=== PATIENT | female | born 1960 | race Caucasian/White ===

== ENCOUNTER 2021-04-29 05:50 | Inpatient (IN) ==
[2021-04-29] MEDS ORDERED: diphenhydrAMINE CAP 50 MG CAPSULE PO ONE (05:55)
[2021-04-29] MEDS ORDERED: POTASSIUM CHLORIDE RIDER 10 MEQ/100 ML PREMIX IV PRN (05:55)
[2021-04-29] MEDS ORDERED: DIAZEPAM 5 MG TABLET PO ONE (05:55)
[2021-04-29] MEDS ORDERED: MAGNESIUM SULF RIDER 2 GM/50 ML PREMIX IV PRN (05:55)
[2021-04-29] MEDS ORDERED: DEXTROSE 5% NACL 0.45% 1,000 ML IV SCH (06:00)
[2021-04-29] MEDS ORDERED: DIAZEPAM 5 MG TABLET ONE (06:42)
[2021-04-29] MEDS ORDERED: diphenhydrAMINE CAP 50 MG CAPSULE ONE (06:43)
[2021-04-29] MEDS ORDERED: ASPIRIN 325 MG TABLET ONE (06:45)
[2021-04-29] MEDS ORDERED: ASPIRIN 325 MG TABLET PO ONE (06:47)
[2021-04-29] MEDS ORDERED: HEPARIN/NACL 0.9% 2 UNITS/ML 2,000 UNIT/1,000 ML BAG IV ONE (06:50)
[2021-04-29] MEDS ORDERED: LIDOCAINE 1% 20 ML VIAL ONE (06:50)
[2021-04-29 06:58] LABS: Basophils # 0.1 10*3/uL (0.0-0.2); Basophils % 0.7 % (0.0-0.8); Eosinophils # 0.1 10*3/uL (0.0-0.87); Eosinophils % 1.3 % (0.00-10.9); Hematocrit 45.1 VOL% (35.7-47.0); Hemoglobin 14.5 GM/DL (12.0-16.0); Immature Granulocytes % 0.5 %; Immature Granulocytes Absolute 0.04 #; Lymphocytes # 3.8 10*3/uL (1.4-4.0); Lymphocytes % 43.2 % (21.3-54.2); Mean Corpuscular HGB Conc 32.2 GM/DL (32-36); Mean Corpuscular Volume 88.3 FL (87-102); Mean Platelet Volume 9.2 FL (9.6-12.0); Monocytes % 8.5 % (1.7-12.7); Neutrophils % 45.8 % (38.7-73.9); Platelet Count 316 T/CUMM (130-400); Red Blood Count 5.11 MC/CUMM (3.8-5.5); Red Cell Distribution Width 12.6 % (9.3-17.3); White Blood Count 8.7 T/CUMM (4-12)
[2021-04-29] MEDS ORDERED: VERAPAMIL 5 MG/2 ML VIAL ONE (07:05)
[2021-04-29] MEDS ORDERED: MIDAZOLAM 2 MG/2 ML VIAL ONE (07:05)
[2021-04-29] MEDS ORDERED: fentaNYL 100 MCG/2 ML VIAL ONE (07:05)
[2021-04-29] MEDS ORDERED: NITROGLYCERIN DRIP 50 MG/250 ML BOTTLE IV ONE (07:05)
[2021-04-29 07:07] LABS: INR 0.9; PT Patient Result 10.4 SECS (10.5-12.0)
[2021-04-29] MEDS ORDERED: ENOXAPARIN 60 MG/0.6 ML SYRINGE ONE (07:23)
[2021-04-29 07:32] LABS: Bilirubin,Total 0.6 MG/DL (0.20-1.00); Calcium 9.2 MG/DL (8.5-10.1); Osmolality,Calculated 284.4 MOS/KG (273-304); Potassium 3.8 MMOL/L (3.5-5.1); Total Protein 7.8 G/DL (6.4-8.2)
[2021-04-29] MEDS ORDERED: GLUCAGON 1 MG VIAL IM PRN (12:42)
[2021-04-29] MEDS ORDERED: DEXTROSE 50% 25 GM/50 ML VIAL IV PRN (12:42)
[2021-04-29] MEDS ORDERED: NITROGLYCERIN SL 0.4 MG TABLET SL PRN (14:30)
[2021-04-29] MEDS ORDERED: MAGNESIUM OXIDE 400 MG TABLET PO SCH (15:00)
[2021-04-29] MEDS ORDERED: FLUoxetine 20 MG CAPSULE PO SCH (15:00)
[2021-04-29] MEDS: ESTRADIOL 1 MG TABLET PO SCH (15:19)
[2021-04-29] MEDS: LEVOTHYROXINE 88 MCG TABLET PO SCH (15:19)
[2021-04-29] MEDS: ENOXAPARIN 80 MG/0.8 ML SYRINGE SUBCUT SCH (15:40)
[2021-04-29] MEDS: INSULIN REGULAR 100 UNIT/ML SUBCUT SCH ×2 (16:55→22:14)
[2021-04-29] MEDS ORDERED: metFORMIN 500 MG TABLET PO SCH (17:00)
[2021-04-29] MEDS ORDERED: NON-FORMULARY MEDICATION (Empagliflozin [Jardiance] 25 MG) PO SCH (17:00)
[2021-04-29] MEDS ORDERED: INSULIN ASPART PROTAMINE/ASPART 70/30 100 UNIT/ML SUBCUT SCH ×2 (18:00→21:00)
[2021-04-29] MEDS ORDERED: VALSARTAN 80 MG TABLET PO SCH (21:00)
[2021-04-29] MEDS ORDERED: METOPROLOL SUCCINATE XL 25 MG TABLET PO SCH (21:00)
[2021-04-29] MEDS ORDERED: METOPROLOL SUCCINATE XL 50 MG TABLET PO SCH (21:00)
[2021-04-29] MEDS ORDERED: ASCORBIC ACID 500 MG TABLET PO SCH (21:00)
[2021-04-29] MEDS: FLUoxetine 20 MG CAPSULE PO SCH (21:28)
[2021-04-29] MEDS: ASPIRIN EC 81 MG TABLET PO SCH (21:29)
[2021-04-29] MEDS: ASCORBIC ACID 500 MG TABLET PO SCH (21:30)
[2021-04-29] MEDS: MAGNESIUM OXIDE 400 MG TABLET PO SCH (22:15)
[2021-04-29] MEDS: CHOLECALCIFEROL 5,000 UNIT TABLET PO SCH (22:16)
[2021-04-29] MEDS: CLORAZEPATE 3.75 MG TABLET PO SCH (22:16)
[2021-04-29] MEDS: PANTOPRAZOLE 40 MG TABLET PO SCH (22:16)
[2021-04-30] MEDS: ENOXAPARIN 80 MG/0.8 ML SYRINGE SUBCUT SCH (03:19)
[2021-04-30 04:16] LABS: ABG Base Excess -0.4 MMOL/L (-2.5-2.5); ABG HCO3 24.3 MMOL/L (20-26); ABG Oxygen Saturation 95.9 % (95-100); ABG PCO2 40.2 MM HG (35-48); ABG PO2 84.1 MM HG (80-95); ABG TCO2 25.6 MMOL/L (23-27)
[2021-04-30 06:11] LABS: Basophils # 0.1 10*3/uL (0.0-0.2); Basophils % 0.7 % (0.0-0.8); Eosinophils # 0.1 10*3/uL (0.0-0.87); Eosinophils % 1.6 % (0.00-10.9); Hemoglobin 13.6 GM/DL (12.0-16.0); Immature Granulocytes % 0.3 %; Immature Granulocytes Absolute 0.03 #; Lymphocytes # 4.1 10*3/uL (1.4-4.0); Lymphocytes % 47.3 % (21.3-54.2); Mean Corpuscular HGB Conc 33.2 GM/DL (32-36); Mean Corpuscular Volume 87.2 FL (87-102); Mean Platelet Volume 9.3 FL (9.6-12.0); Monocytes % 7.2 % (1.7-12.7); Neutrophils % 42.9 % (38.7-73.9); Platelet Count 297 T/CUMM (130-400); Red Cell Distribution Width 12.4 % (9.3-17.3); White Blood Count 8.7 T/CUMM (4-12)
[2021-04-30] MEDS: LEVOTHYROXINE 88 MCG TABLET PO SCH (06:18)
[2021-04-30 07:14] LABS: Albumin 3.4 G/DL (3.4-5.0); Bilirubin,Total 0.4 MG/DL (0.20-1.00); Calcium 8.3 MG/DL (8.5-10.1); Osmolality,Calculated 275.1 MOS/KG (273-304); Total Protein 6.6 G/DL (6.4-8.2)
[2021-04-30] MEDS ORDERED: INSULIN ASPART PROTAMINE/ASPART 70/30 100 UNIT/ML SUBCUT SCH ×3 (08:00→16:30)
[2021-04-30] MEDS ORDERED: VALSARTAN 80 MG TABLET PO SCH ×2 (09:00)
[2021-04-30] MEDS: MAGNESIUM OXIDE 400 MG TABLET PO SCH ×2 (10:02→21:30)
[2021-04-30] MEDS: METOPROLOL SUCCINATE XL 25 MG TABLET PO SCH ×2 (10:02→21:30)
[2021-04-30] MEDS: INSULIN REGULAR 100 UNIT/ML SUBCUT SCH ×3 (10:03→12:31)
[2021-04-30] MEDS: ASCORBIC ACID 500 MG TABLET PO SCH ×2 (10:05→21:30)
[2021-04-30] MEDS: CHLORHEXIDINE 0.12% ORAL RINSE 60 ML BOTTLE SWISH/SPIT SCH (10:05)
[2021-04-30] MEDS: CHLORHEXIDINE 4% SOLN 118 ML BOTTLE TOP SCH (14:50)
[2021-04-30] MEDS ORDERED: FLUoxetine 20 MG CAPSULE PO PRN (16:39)
[2021-04-30] MEDS: INSULIN LISPRO 100 UNIT/ML SUBCUT SCH ×2 (17:56→22:56)
[2021-04-30] MEDS: ASPIRIN EC 81 MG TABLET PO SCH (21:30)
[2021-04-30] MEDS: FLUoxetine 20 MG CAPSULE PO SCH (21:30)
[2021-04-30] MEDS: PANTOPRAZOLE 40 MG TABLET PO SCH (21:30)
[2021-04-30] MEDS: CHOLECALCIFEROL 5,000 UNIT TABLET PO SCH (21:37)
[2021-04-30] MEDS: INSULIN GLARGINE 100 UNIT/ML SUBCUT SCH (22:56)
[2021-04-30] MEDS: CLORAZEPATE 3.75 MG TABLET PO SCH (22:57)
[2021-05-01] MEDS: NIFEdipine 10 MG CAPSULE PO PRN ×2 (04:17→10:53)
[2021-05-01] MEDS ORDERED: VANCOMYCIN INJ 1,000 MG in SODIUM CHLORIDE 0.9% 250 ML IV ONE (05:00)
[2021-05-01] MEDS ORDERED: PANTOPRAZOLE 40 MG TABLET PO ONE (05:30)
[2021-05-01] MEDS ORDERED: LORazepam 1 MG TABLET PO ONE (05:30)
[2021-05-01 06:04] LABS: Risk Ratio 6.08; VLDL Cholesterol 89.2 MG/DL
[2021-05-01] MEDS: LEVOTHYROXINE 88 MCG TABLET PO SCH (06:14)
[2021-05-01] MEDS: CHLORHEXIDINE 4% SOLN 118 ML BOTTLE TOP SCH ×2 (06:32→09:33)
[2021-05-01] MEDS: CHLORHEXIDINE 0.12% ORAL RINSE 60 ML BOTTLE SWISH/SPIT SCH ×3 (06:32→22:15)
[2021-05-01] MEDS ORDERED: CLORAZEPATE 3.75 MG TABLET PO PRN (08:10)
[2021-05-01] MEDS ORDERED: DIAZEPAM 5 MG TABLET PO ONE (08:15)
[2021-05-01] MEDS ORDERED: CLOPIDOGREL 75 MG TABLET PO SCH (09:00)
[2021-05-01] MEDS: VALSARTAN 80 MG TABLET PO SCH ×2 (09:29→21:34)
[2021-05-01] MEDS: ESTRADIOL 1 MG TABLET PO SCH (09:30)
[2021-05-01] MEDS: MAGNESIUM OXIDE 400 MG TABLET PO SCH ×2 (09:30→21:34)
[2021-05-01] MEDS: ACETAMINOPHEN 325 MG TABLET PO PRN ×2 (09:31→22:11)
[2021-05-01] MEDS: ASCORBIC ACID 500 MG TABLET PO SCH ×2 (09:31→21:33)
[2021-05-01] MEDS: SELENIUM 200 MCG TABLET PO SCH (09:31)
[2021-05-01] MEDS: METOPROLOL SUCCINATE XL 25 MG TABLET PO SCH ×2 (09:32→21:35)
[2021-05-01] MEDS: INSULIN LISPRO 100 UNIT/ML SUBCUT SCH ×4 (09:33→22:15)
[2021-05-01] MEDS: SODIUM CHLORIDE 0.9% 1,000 ML IV SCH ×2 (09:33→14:15)
[2021-05-01] MEDS: CLOPIDOGREL 75 MG TABLET PO SCH (14:26)
[2021-05-01] MEDS ORDERED: ESCITALOPRAM 10 MG TABLET PO SCH (21:00)
[2021-05-01] MEDS ORDERED: ROSUVASTATIN 20 MG TABLET PO SCH (21:00)
[2021-05-01] MEDS: CHOLECALCIFEROL 5,000 UNIT TABLET PO SCH (21:34)
[2021-05-01] MEDS: PANTOPRAZOLE 40 MG TABLET PO SCH (21:34)
[2021-05-01] MEDS: ASPIRIN EC 81 MG TABLET PO SCH (21:35)
[2021-05-01] MEDS: INSULIN GLARGINE 100 UNIT/ML SUBCUT SCH (22:13)
[2021-05-02] MEDS: LEVOTHYROXINE 88 MCG TABLET PO SCH (05:59)
[2021-05-02] MEDS: METOPROLOL SUCCINATE XL 25 MG TABLET PO SCH (08:17)
[2021-05-02] MEDS: ASCORBIC ACID 500 MG TABLET PO SCH (08:19)
[2021-05-02] MEDS: MAGNESIUM OXIDE 400 MG TABLET PO SCH (08:19)
[2021-05-02] MEDS: CLOPIDOGREL 75 MG TABLET PO SCH (08:19)
[2021-05-02 08:20] VITALS: BP 131/84
[2021-05-02] MEDS: VALSARTAN 80 MG TABLET PO SCH (08:20)
[2021-05-02] MEDS: CHLORHEXIDINE 0.12% ORAL RINSE 60 ML BOTTLE SWISH/SPIT SCH (08:20)
[2021-05-02] MEDS: SELENIUM 200 MCG TABLET PO SCH (09:33)
[2021-05-02] MEDS: INSULIN LISPRO 100 UNIT/ML SUBCUT SCH (09:36)
[2021-05-06] MEDS ORDERED: CYANOCOBALAMIN 1000 MCG/1 ML VIAL IM SCH (09:00)
== END 2021-05-02 11:09 | disposition home or self-care (01) | DRG 286 ==
LOC: N.CL 05:50 → N.TELES 12:05
PROVIDERS: ADMIT Internal Medicine Interventional Cardiology; ATTEND Internal Medicine Interventional Cardiology
PROC: CLCCHCL (ICD-10-PCS; 2021-04-29 07:15)

== ENCOUNTER 2021-05-29 08:21 | Inpatient (IN) ==
[2021-05-29] MEDS ORDERED: GLUCAGON 1 MG VIAL IM PRN (09:09)
[2021-05-29] MEDS ORDERED: DEXTROSE 50% 25 GM/50 ML VIAL IV PRN (09:09)
[2021-05-29] MEDS: CHLORHEXIDINE 0.12% ORAL RINSE 60 ML BOTTLE SWISH/SPIT SCH ×2 (09:10→20:33)
[2021-05-29] MEDS ORDERED: CLORAZEPATE 3.75 MG TABLET PO PRN (09:16)
[2021-05-29] MEDS: CHLORHEXIDINE 4% SOLN 118 ML BOTTLE TOP SCH ×3 (10:00→20:33)
[2021-05-29 10:36] LABS: Basophils % 0.5 % (0.0-0.8); Eosinophils # 0.1 10*3/uL (0.0-0.87); Eosinophils % 1.5 % (0.00-10.9); Hematocrit 39.1 VOL% (35.7-47.0); Hemoglobin 13.1 GM/DL (12.0-16.0); Immature Granulocytes % 0.2 %; Immature Granulocytes Absolute 0.02 #; Lymphocytes # 3.4 10*3/uL (1.4-4.0); Lymphocytes % 41.6 % (21.3-54.2); Mean Corpuscular HGB Conc 33.5 GM/DL (32-36); Mean Corpuscular Volume 87.5 FL (87-102); Mean Platelet Volume 9.6 FL (9.6-12.0); Monocytes % 7.8 % (1.7-12.7); Neutrophils % 48.4 % (38.7-73.9); Platelet Count 260 T/CUMM (130-400); Red Blood Count 4.47 MC/CUMM (3.8-5.5); Red Cell Distribution Width 12.6 % (9.3-17.3); White Blood Count 8.1 T/CUMM (4-12)
[2021-05-29 11:57] LABS: Calcium 8.7 MG/DL (8.5-10.1)
[2021-05-29 11:59] LABS: Albumin 3.6 G/DL (3.4-5.0); Bilirubin,Total 1.2 MG/DL (0.20-1.00); Osmolality,Calculated 290.1 MOS/KG (273-304); Total Protein 6.6 G/DL (6.4-8.2)
[2021-05-29] MEDS: INSULIN REGULAR 100 UNIT/ML SUBCUT SCH ×3 (12:00→20:32)
[2021-05-29] MEDS ORDERED: MAGNESIUM SULF RIDER 2 GM/50 ML PREMIX IV ONE (12:17)
[2021-05-29 13:32] LABS: ABG HCO3 24.5 MMOL/L (20-26); ABG PCO2 38.6 MM HG (35-48); ABG TCO2 21.3 MMOL/L (23-27)
[2021-05-29] MEDS ORDERED: MAGNESIUM SULF RIDER 4 GM/100 ML PREMIX IV PRN (15:00)
[2021-05-29] MEDS ORDERED: MAGNESIUM SULF RIDER 2 GM/50 ML PREMIX IV PRN (15:00)
[2021-05-29] MEDS ORDERED: PANTOPRAZOLE 40 MG TABLET PO ONE (16:59)
[2021-05-29] MEDS ORDERED: DIAZEPAM 5 MG TABLET PO ONE (16:59)
[2021-05-29] MEDS: SODIUM CHLORIDE 0.9% 1,000 ML IV SCH (20:33)
[2021-05-30] MEDS ORDERED: PAPAVERINE 60 MG/2 ML VIAL ONE (04:43)
[2021-05-30] MEDS ORDERED: VANCOMYCIN 1,000 MG VIAL ONE (04:43)
[2021-05-30] MEDS ORDERED: VANCOMYCIN 500 MG VIAL ONE (04:44)
[2021-05-30] MEDS ORDERED: DIAZEPAM 5 MG TABLET PO ONE (05:00)
[2021-05-30] MEDS ORDERED: PANTOPRAZOLE 40 MG TABLET PO ONE (05:00)
[2021-05-30] MEDS ORDERED: VANCOMYCIN INJ 1,000 MG in SODIUM CHLORIDE 0.9% 250 ML IV ONE (05:00)
[2021-05-30] MEDS ORDERED: SUFentanil 250 MCG/5 ML AMP ONE ×2 (05:57)
[2021-05-30] MEDS ORDERED: MIDAZOLAM 10 MG/2 ML VIAL ONE ×4 (05:57→09:19)
[2021-05-30] MEDS ORDERED: LIDOCAINE 2% 5 ML VIAL ONE ×2 (06:05→10:21)
[2021-05-30] MEDS ORDERED: VECURONIUM 10 MG VIAL IV ONE ×3 (06:05→09:19)
[2021-05-30] MEDS ORDERED: SEVOFLURANE 1 UNIT/15 MINUTE INH ONE (06:05)
[2021-05-30] MEDS ORDERED: ETOMIDATE 40 MG/20 ML VIAL IV ONE (06:05)
[2021-05-30] MEDS ORDERED: SODIUM CHLORIDE 0.9% 1,000 ML IV ONE (06:07)
[2021-05-30] MEDS ORDERED: SODIUM CHLORIDE 0.9% 200 ML IV ONE (06:07)
[2021-05-30] MEDS ORDERED: SODIUM CHLORIDE 0.9% 250 ML IV ONE (06:07)
[2021-05-30] MEDS ORDERED: SODIUM BICARBONATE 50 MEQ/50 ML VIAL IV ONE ×2 (07:16→10:22)
[2021-05-30] MEDS ORDERED: NITROPRUSSIDE 50 MG/2 ML VIAL ONE (07:16)
[2021-05-30] MEDS ORDERED: ALBUMIN 5% 12.5 GM/250 ML VIAL IV ONE (07:17)
[2021-05-30] MEDS ORDERED: PHENYLEPHRINE DRIP 40 MG/250 ML PREMIX IV ONE (07:17)
[2021-05-30] MEDS ORDERED: POTASSIUM CHLORIDE RIDER 20 MEQ/100 ML PREMIX IV ONE (07:17)
[2021-05-30] MEDS ORDERED: CALCIUM CHLORIDE 1,000 MG/10 ML SYRINGE IV ONE (07:17)
[2021-05-30 07:38] LABS: ABG Base Excess 0.7 MMOL/L (-2.5-2.5); ABG HCO3 25.1 MMOL/L (20-26); ABG PCO2 32.1 MM HG (35-48); ABG PH 7.473 (7.35-7.45); ABG TCO2 20.5 MMOL/L (23-27); Glucose Heart Surgery 195 MG/DL (74-106); Hematocrit Heart Surgery 39.1 PERCENT (37-47); Hemoglobin Heart Surgery 12.7 G/DL (12.0-16.0); Ionized Calcium Arterial 1.14 MMOL/L (1.21-1.46); PCO2 Patient Temp Arterial 32.1 MMHG; PH Patient Temp Arterial 7.473; Patient Temperature 37 CELCIUS; Potassium Heart/CVR 3.6 MMOL/L (3.5-5.1); Sodium Heart/CVR 141 MMOL/L (135-145)
[2021-05-30 07:42] LABS: Bacteria,Urine Occasional /HPF (Few); Bilirubin,Urine Negative (Negative); Blood, Urine Negative (Negative); Glucose,Urine (UA) >=500 mg/dL (Negative); Ketones,Urine 80 mg/dL (Negative); Nitrite,Urine Negative (Negative); Protein,Urine Negative; RBC,Urine 4 /HPF (0-4); Squamous Epithelial Cell,Urine Occasional /HPF (0-10); Urine Appearance CLEAR (Clear); Urine Color Straw (Yellow); Urine Specific Gravity 1.024 (1.001-1.035); Urine Urobilinogen < 2.0 EU/DL (0.2-1.0)
[2021-05-30] MEDS ORDERED: HEPARIN/NACL 0.9% 2 UNITS/ML 1,000 UNIT/500 ML BAG IV ONE (08:03)
[2021-05-30] MEDS ORDERED: NITROGLYCERIN DRIP 50 MG/250 ML BOTTLE IV ONE (08:03)
[2021-05-30] MEDS ORDERED: PHENYLEPHRINE DRIP 20 MG/250 ML PREMIX IV ONE (08:03)
[2021-05-30] MEDS ORDERED: AMIODARONE 150 MG/3 ML VIAL ONE (08:36)
[2021-05-30] MEDS ORDERED: SODIUM CHLORIDE 0.9% 100 ML IV ONE ×2 (08:36→09:40)
[2021-05-30 09:01] LABS: PCO2 Patient Temp Venous 31.4 MM HG; PH Patient Temp Venous 7.47; PO2 Patient Temp Venous 39.8 MM HG; Potassium Heart/CVR 4.2 MMOL/L (3.5-5.1); VBG Base Excess -0.3 MEQ/L (0-4); VBG Oxygen Saturation 82.2 %; VBG PCO2 34.6 MMHG (41-51); VBG PH 7.441; VBG PO2 45.6 MMHG (17-40)
[2021-05-30 09:25] LABS: Hematocrit Heart Surgery 27.5 PERCENT (37-47); Hemoglobin Heart Surgery 8.9 G/DL (12.0-16.0); PH Patient Temp Venous 7.463; PO2 Patient Temp Venous 42.7 MM HG; Potassium Heart/CVR 4.4 MMOL/L (3.5-5.1); VBG Base Excess -0.9 MEQ/L (0-4); VBG HCO3 23.5 MEQ/L (24-28); VBG Oxygen Saturation 87.1 %; VBG PCO2 35.9 MMHG (41-51); VBG PH 7.419; VBG PO2 52.4 MMHG (17-40); VBG Total CO2 21.5 MMOL/L
[2021-05-30] MEDS ORDERED: CALCIUM CHLORIDE 1,000 MG/10 ML VIAL IV ONE (09:36)
[2021-05-30] MEDS ORDERED: ESMOLOL 100 MG/10 ML VIAL IV ONE (09:43)
[2021-05-30] MEDS ORDERED: THROMBIN TOPICAL (RECOMBINANT) 5,000 UNIT VIAL TOP ONE (09:50)
[2021-05-30 09:59] LABS: Hematocrit Heart Surgery 27.4 PERCENT (37-47); Hemoglobin Heart Surgery 8.8 G/DL (12.0-16.0); PCO2 Patient Temp Venous 36.2 MM HG; PH Patient Temp Venous 7.428; PO2 Patient Temp Venous 41.5 MM HG; Potassium Heart/CVR 4.6 MMOL/L (3.5-5.1); VBG Base Excess -0.2 MEQ/L (0-4); VBG Oxygen Saturation 75.8 %; VBG PCO2 36.2 MMHG (41-51); VBG PH 7.428; VBG PO2 41.5 MMHG (17-40); VBG Total CO2 22.1 MMOL/L
[2021-05-30] MEDS ORDERED: MAGNESIUM SULFATE 5 GM/10 ML VIAL IV ONE (10:21)
[2021-05-30] MEDS ORDERED: methylPREDNISolone SOD SUC 1,000 MG/8 ML VIAL ONE (10:21)
[2021-05-30] MEDS ORDERED: ALBUMIN 25% 25 GM/100 ML VIAL IV ONE (10:21)
[2021-05-30] MEDS ORDERED: FUROSEMIDE 20 MG/2 ML VIAL ONE (10:22)
[2021-05-30] MEDS ORDERED: DEXTROSE 5% KCL 20 MEQ 20 MEQ/1,000 ML BAG IV ONE (10:22)
[2021-05-30] MEDS ORDERED: PROTAMINE SULFATE 50 MG/5 ML VIAL IV ONE ×2 (10:22→11:35)
[2021-05-30] MEDS ORDERED: PROTAMINE SULFATE 250 MG/25 ML VIAL IV ONE (10:22)
[2021-05-30] MEDS ORDERED: MANNITOL 12.5 GM/50 ML VIAL IV ONE (10:22)
[2021-05-30] MEDS ORDERED: HEPARIN 10,000 UNIT/10 ML VIAL ONE (10:22)
[2021-05-30] MEDS ORDERED: MANNITOL 100 GM/500 ML BAG IV ONE (10:22)
[2021-05-30 10:28] LABS: ABG Base Excess -1.8 MMOL/L (-2.5-2.5); ABG HCO3 22.6 MMOL/L (20-26); ABG Oxygen Saturation 98.7 % (95-100); ABG PCO2 37.2 MM HG (35-48); ABG PH 7.402 (7.35-7.45); ABG PO2 309.5 MM HG (80-95); ABG TCO2 23.8 MMOL/L (23-27); Glucose Heart Surgery 284 MG/DL (74-106); Hemoglobin Heart Surgery 9.8 G/DL (12.0-16.0); Ionized Calcium Arterial 1.16 MMOL/L (1.21-1.46); PCO2 Patient Temp Arterial 37.2 MMHG; PH Patient Temp Arterial 7.402; PO2 Patient Temp Arterial 309.5 MM HG; Patient Temperature 37 CELCIUS; Potassium Heart/CVR 3.8 MMOL/L (3.5-5.1); Sodium Heart/CVR 135 MMOL/L (135-145)
[2021-05-30] MEDS ORDERED: METOPROLOL TARTRATE 5 MG/5 ML VIAL IV ONE (10:41)
[2021-05-30] MEDS ORDERED: PHENYLEPHRINE DRIP 40 MG/250 ML PREMIX IV PRN (11:27)
[2021-05-30] MEDS ORDERED: SODIUM CHLORIDE 0.45% 1,000 ML IV SCH ×2 (11:27)
[2021-05-30] MEDS ORDERED: ACETAMINOPHEN 650 MG SUPP RECTAL PRN (11:27)
[2021-05-30] MEDS ORDERED: MAGNESIUM SULF RIDER 4 GM/100 ML PREMIX IV PRN (11:27)
[2021-05-30] MEDS ORDERED: LACTATED RINGERS 250 ML IV PRN (11:27)
[2021-05-30] MEDS ORDERED: POTASSIUM CHLORIDE RIDER 10 MEQ/100 ML PREMIX IV PRN (11:27)
[2021-05-30] MEDS ORDERED: MIDAZOLAM 10 MG/2 ML VIAL IV PRN (11:27)
[2021-05-30] MEDS ORDERED: MAGNESIUM SULF RIDER 2 GM/50 ML PREMIX IV PRN (11:27)
[2021-05-30] MEDS ORDERED: INSULIN REGULAR 100 UNIT/ML IV ONE (11:27)
[2021-05-30] MEDS ORDERED: MIDAZOLAM 2 MG/2 ML VIAL IV PRN (11:27)
[2021-05-30] MEDS ORDERED: VECURONIUM 10 MG VIAL IV PRN ×2 (11:27)
[2021-05-30] MEDS ORDERED: CHLORHEXIDINE 4% SOLN 118 ML BOTTLE TOP PRN (11:27)
[2021-05-30] MEDS ORDERED: INSULIN REGULAR 100 UNIT/ML IV PRN (11:27)
[2021-05-30] MEDS ORDERED: CALCIUM CHLORIDE 1,000 MG/10 ML SYRINGE IV PRN (11:27)
[2021-05-30] MEDS ORDERED: DEXTROSE 50% 25 GM/50 ML VIAL IV PRN ×2 (11:27)
[2021-05-30] MEDS ORDERED: NITROPRUSSIDE 100 MG in DEXTROSE 5% 250 ML IV PRN (11:27)
[2021-05-30] MEDS: INSULIN REGULAR 100 UNIT/ML SUBCUT SCH (11:38)
[2021-05-30] MEDS: CHLORHEXIDINE 0.12% ORAL RINSE 60 ML BOTTLE SWISH/SPIT SCH (11:39)
[2021-05-30] MEDS: SODIUM CHLORIDE 0.9% 1,000 ML IV SCH (11:39)
[2021-05-30 12:00] LABS: Basophils % 0.3 % (0.0-0.8); Eosinophils % 0.3 % (0.00-10.9); Hematocrit 28.8 VOL% (35.7-47.0); Immature Granulocytes % 0.7 %; Immature Granulocytes Absolute 0.08 #; Lymphocytes # 1.3 10*3/uL (1.4-4.0); Lymphocytes % 11.9 % (21.3-54.2); Mean Corpuscular HGB Conc 34.4 GM/DL (32-36); Mean Platelet Volume 9.5 FL (9.6-12.0); Monocytes % 4.3 % (1.7-12.7); Neutrophils % 82.5 % (38.7-73.9); Platelet Count 228 T/CUMM (130-400); Red Cell Distribution Width 12.6 % (9.3-17.3)
[2021-05-30 12:01] LABS: Hemoglobin 9.9 GM/DL (12.0-16.0); Red Blood Count 3.39 MC/CUMM (3.8-5.5)
[2021-05-30 12:02] LABS: ABG Base Excess 2.1 MMOL/L (-2.5-2.5); ABG HCO3 25.9 MMOL/L (20-26); ABG Oxygen Saturation 98.1 % (95-100); ABG PCO2 37.1 MM HG (35-48); ABG PH 7.461 (7.35-7.45); ABG PO2 150.7 MM HG (80-95); Glucose Heart Surgery 275 MG/DL (74-106); Hemoglobin Heart Surgery 10.2 G/DL (12.0-16.0); Potassium Heart/CVR 3.4 MMOL/L (3.5-5.1)
[2021-05-30] MEDS: POTASSIUM CHLORIDE RIDER 20 MEQ/100 ML PREMIX IV PRN ×4 (12:05→20:07)
[2021-05-30 12:08] LABS: INR 1.1; PT Patient Result 11.8 SECS (10.5-12.0); Partial Thromboplastin Time 26.5 SECS (23.9-33.8)
[2021-05-30] MEDS: INSULIN REGULAR DRIP 100 ML IV SCH (12:36)
[2021-05-30 14:04] LABS: ABG Base Excess 0.5 MMOL/L (-2.5-2.5); ABG HCO3 24.9 MMOL/L (20-26); ABG Oxygen Saturation 99.2 % (95-100); ABG PCO2 37.9 MM HG (35-48); ABG PH 7.423 (7.35-7.45); ABG TCO2 22.4 MMOL/L (23-27); Glucose Heart Surgery 221 MG/DL (74-106); Hematocrit Heart Surgery 31.4 PERCENT (37-47); Hemoglobin Heart Surgery 10.2 G/DL (12.0-16.0); Potassium Heart/CVR 3.9 MMOL/L (3.5-5.1)
[2021-05-30 15:06] LABS: CKMB % 5.5 %
[2021-05-30 15:08] LABS: High Sensitive Troponin I* 7010.9 ng/L (0-54)
[2021-05-30] MEDS: ALBUMIN 5% 12.5 GM/250 ML VIAL IV PRN ×2 (15:11→15:41)
[2021-05-30 15:25] LABS: Albumin 3.5 G/DL (3.4-5.0); Bilirubin,Total 1.1 MG/DL (0.20-1.00); Calcium 8.2 MG/DL (8.5-10.1); Osmolality,Calculated 290.7 MOS/KG (273-304); Potassium 3.2 MMOL/L (3.5-5.1); Total Protein 6.1 G/DL (6.4-8.2)
[2021-05-30] MEDS: MORPHINE 10 MG/1 ML VIAL IV PRN ×2 (17:36→23:31)
[2021-05-30] MEDS ORDERED: METOPROLOL TARTRATE 25 MG TABLET PO ONE (19:18)
[2021-05-30 19:41] LABS: ABG Base Excess -0.7 MMOL/L (-2.5-2.5); ABG HCO3 23.8 MMOL/L (20-26); ABG Oxygen Saturation 99.4 % (95-100); ABG PCO2 36.1 MM HG (35-48); ABG TCO2 21.5 MMOL/L (23-27); Glucose Heart Surgery 146 MG/DL (74-106); Hematocrit Heart Surgery 28.6 PERCENT (37-47); Hemoglobin Heart Surgery 9.2 G/DL (12.0-16.0); Potassium Heart/CVR 3.5 MMOL/L (3.5-5.1)
[2021-05-30 19:43] LABS: CKMB % 4.1 %
[2021-05-30 19:45] LABS: High Sensitive Troponin I* 5693.6 ng/L (0-54)
[2021-05-30] MEDS ORDERED: CHLORHEXIDINE 0.12% ORAL RINSE 60 ML BOTTLE SWISH/SPIT SCH (21:00)
[2021-05-30 22:09] LABS: ABG Base Excess -1.4 MMOL/L (-2.5-2.5); ABG HCO3 22.8 MMOL/L (20-26); ABG Oxygen Saturation 97.9 % (95-100); ABG PH 7.419 (7.35-7.45); ABG PO2 121.3 MM HG (80-95); ABG TCO2 23.9 MMOL/L (23-27); Glucose Heart Surgery 127 MG/DL (74-106); Hemoglobin Heart Surgery 10.6 G/DL (12.0-16.0); Potassium Heart/CVR 3.6 MMOL/L (3.5-5.1)
[2021-05-30] MEDS: VANCOMYCIN INJ 1,000 MG in SODIUM CHLORIDE 0.9% 250 ML IV SCH (23:03)
[2021-05-30] MEDS ORDERED: FUROSEMIDE 40 MG/4 ML VIAL IV ONE (23:06)
[2021-05-30 23:09] LABS: ABG HCO3 24.7 MMOL/L (20-26); ABG Oxygen Saturation 97.7 % (95-100); ABG PCO2 40.6 MM HG (35-48); ABG PH 7.402 (7.35-7.45); ABG PO2 115.6 MM HG (80-95); ABG TCO2 25.9 MMOL/L (23-27); Glucose Heart Surgery 118 MG/DL (74-106); Hemoglobin Heart Surgery 10.5 G/DL (12.0-16.0); Potassium Heart/CVR 3.5 MMOL/L (3.5-5.1)
[2021-05-30] MEDS: ONDANSETRON 4 MG/2 ML VIAL IV PRN (23:30)
[2021-05-31 00:11] LABS: ABG Base Excess 0.2 MMOL/L (-2.5-2.5); ABG HCO3 24.7 MMOL/L (20-26); ABG Oxygen Saturation 98.3 % (95-100); ABG PCO2 39.5 MM HG (35-48); ABG PH 7.414 (7.35-7.45); ABG PO2 143.1 MM HG (80-95); ABG TCO2 25.9 MMOL/L (23-27); Glucose Heart Surgery 123 MG/DL (74-106); Potassium Heart/CVR 3.5 MMOL/L (3.5-5.1)
[2021-05-31] MEDS: POTASSIUM CHLORIDE RIDER 20 MEQ/100 ML PREMIX IV PRN (00:17)
[2021-05-31] MEDS: MORPHINE 10 MG/1 ML VIAL IV PRN ×2 (00:57→04:31)
[2021-05-31] MEDS: ONDANSETRON 4 MG/2 ML VIAL IV PRN ×3 (03:49→18:33)
[2021-05-31 03:58] LABS: ABG Base Excess 0.4 MMOL/L (-2.5-2.5); ABG Oxygen Saturation 98.1 % (95-100); ABG PCO2 46.3 MM HG (35-48); ABG PH 7.368 (7.35-7.45); ABG PO2 126.6 MM HG (80-95); ABG TCO2 27.5 MMOL/L (23-27); Glucose Heart Surgery 133 MG/DL (74-106); Hemoglobin Heart Surgery 10.9 G/DL (12.0-16.0)
[2021-05-31 04:04] LABS: Basophils % 0.1 % (0.0-0.8); Hematocrit 30.2 VOL% (35.7-47.0); Hemoglobin 10.1 GM/DL (12.0-16.0); Immature Granulocytes % 0.5 %; Immature Granulocytes Absolute 0.08 #; Lymphocytes # 1.7 10*3/uL (1.4-4.0); Lymphocytes % 10.4 % (21.3-54.2); Mean Corpuscular HGB Conc 33.4 GM/DL (32-36); Mean Corpuscular Volume 85.8 FL (87-102); Mean Platelet Volume 9.5 FL (9.6-12.0); Monocytes % 6.4 % (1.7-12.7); Neutrophils % 82.6 % (38.7-73.9); Platelet Count 243 T/CUMM (130-400); Red Blood Count 3.52 MC/CUMM (3.8-5.5); Red Cell Distribution Width 13.2 % (9.3-17.3); White Blood Count 16.8 T/CUMM (4-12)
[2021-05-31 04:45] LABS: Albumin 3.8 G/DL (3.4-5.0); Bilirubin,Direct 0.17 MG/DL (0.0-0.20); Bilirubin,Total 0.7 MG/DL (0.20-1.00); Calcium 8.5 MG/DL (8.5-10.1); Potassium 3.9 MMOL/L (3.5-5.1); Total Protein 6.2 G/DL (6.4-8.2)
[2021-05-31 04:46] LABS: High Sensitive Troponin I* 5073.5 ng/L (0-54)
[2021-05-31 05:00] LABS: ABG Base Excess -2.8 MMOL/L (-2.5-2.5); ABG HCO3 22.1 MMOL/L (20-26); ABG Oxygen Saturation 98.5 % (95-100); ABG PCO2 44.1 MM HG (35-48); ABG PH 7.328 (7.35-7.45); ABG TCO2 21.2 MMOL/L (23-27); Glucose Heart Surgery 142 MG/DL (74-106); Hematocrit Heart Surgery 30.6 PERCENT (37-47); Hemoglobin Heart Surgery 9.9 G/DL (12.0-16.0); Potassium Heart/CVR 4.1 MMOL/L (3.5-5.1)
[2021-05-31] MEDS ORDERED: METOCLOPRAMIDE 10 MG/2 ML VIAL IV ONE (06:13)
[2021-05-31] MEDS: oxyCODONE/ACETAMINOPHEN 5-325 MG TABLET PO PRN ×3 (06:24→18:33)
[2021-05-31] MEDS: INSULIN REGULAR DRIP 100 ML IV SCH (07:05)
[2021-05-31] MEDS: ASPIRIN EC 325 MG TABLET PO SCH (08:18)
[2021-05-31] MEDS: LEVOTHYROXINE 88 MCG TABLET PO SCH (08:18)
[2021-05-31] MEDS: MAGNESIUM OXIDE 400 MG TABLET PO SCH ×2 (08:18→22:05)
[2021-05-31] MEDS: METOPROLOL TARTRATE 25 MG TABLET PO SCH ×2 (08:18→22:06)
[2021-05-31] MEDS: ASCORBIC ACID 500 MG TABLET PO SCH ×2 (08:18→22:04)
[2021-05-31] MEDS ORDERED: DEXTROSE 50% 25 GM/50 ML VIAL IV PRN (08:32)
[2021-05-31] MEDS ORDERED: ALUMINUM/MAGNES/SIMETH MAX STR 30 ML UDCUP PO PRN (08:32)
[2021-05-31] MEDS ORDERED: GLUCAGON 1 MG VIAL IM PRN (08:32)
[2021-05-31] MEDS ORDERED: MAGNESIUM SULF RIDER 4 GM/100 ML PREMIX IV PRN (08:32)
[2021-05-31] MEDS ORDERED: MAGNESIUM HYDROXIDE SUSP 30 ML UDCUP PO PRN (08:32)
[2021-05-31] MEDS: CHLORHEXIDINE 0.12% ORAL RINSE 60 ML BOTTLE SWISH/SPIT SCH ×2 (08:51→22:15)
[2021-05-31] MEDS: DOCUSATE SODIUM 100 MG CAPSULE PO SCH (09:12)
[2021-05-31] MEDS: FERROUS SULFATE 325 MG TABLET PO SCH (09:12)
[2021-05-31] MEDS: SODIUM CHLOR 0.45% KCL 20 MEQ 20 MEQ/1,000 ML BAG IV SCH (10:12)
[2021-05-31] MEDS: VANCOMYCIN INJ 1,000 MG in SODIUM CHLORIDE 0.9% 250 ML IV SCH ×2 (11:15→22:14)
[2021-05-31 11:58] LABS: High Sensitive Troponin I* 4257.5 ng/L (0-54)
[2021-05-31] MEDS: ACETAMINOPHEN 325 MG TABLET PO PRN ×2 (12:28→16:33)
[2021-05-31] MEDS: PANTOPRAZOLE 40 MG TABLET PO SCH (22:05)
[2021-05-31] MEDS: ROSUVASTATIN 20 MG TABLET PO SCH (22:05)
[2021-05-31] MEDS: CHOLECALCIFEROL 5,000 UNIT TABLET PO SCH (22:06)
[2021-06-01] MEDS: ACETAMINOPHEN 325 MG TABLET PO PRN (01:13)
[2021-06-01] MEDS: ONDANSETRON 4 MG/2 ML VIAL IV PRN ×4 (01:50→20:50)
[2021-06-01] MEDS: oxyCODONE/ACETAMINOPHEN 5-325 MG TABLET PO PRN ×4 (01:51→20:52)
[2021-06-01] MEDS: ZALEPLON 5 MG CAPSULE PO PRN ×2 (01:51→20:50)
[2021-06-01 05:42] LABS: Basophils % 0.1 % (0.0-0.8); Mean Corpuscular Volume 91.9 FL (87-102); Red Cell Distribution Width 13.2 % (9.3-17.3)
[2021-06-01 05:49] LABS: Hematocrit 31.7 VOL% (35.7-47.0); Hemoglobin 10.1 GM/DL (12.0-16.0); Immature Granulocytes Absolute 0.17 #; Lymphocytes # 1.6 10*3/uL (1.4-4.0); Lymphocytes % 9.5 % (21.3-54.2); Mean Corpuscular HGB Conc 31.9 GM/DL (32-36); Mean Platelet Volume 10.3 FL (9.6-12.0); Monocytes % 5.8 % (1.7-12.7); Neutrophils % 83.6 % (38.7-73.9); Platelet Count 242 T/CUMM (130-400); Red Blood Count 3.45 MC/CUMM (3.8-5.5)
[2021-06-01] MEDS ORDERED: FUROSEMIDE 40 MG/4 ML VIAL IV ONE (06:00)
[2021-06-01 06:06] LABS: Calcium 8.7 MG/DL (8.5-10.1); Osmolality,Calculated 286.4 MOS/KG (273-304); Potassium 4.4 MMOL/L (3.5-5.1)
[2021-06-01 06:13] LABS: Albumin 3.4 G/DL (3.4-5.0); Bilirubin,Direct 0.15 MG/DL (0.0-0.20); Bilirubin,Total 0.7 MG/DL (0.20-1.00); Calcium 8.7 MG/DL (8.5-10.1); Osmolality,Calculated 288.3 MOS/KG (273-304); Potassium 4.4 MMOL/L (3.5-5.1); Total Protein 6.4 G/DL (6.4-8.2)
[2021-06-01 06:27] LABS: Alanine Aminotransferase 17 U/L (13-56); Albumin 3.4 G/DL (3.4-5.0); Alkaline Phosphatase 61 U/L (45-117); Aspartate Amino Transferase 16 U/L (0-37); Bilirubin,Indirect 1.1 MG/DL (0.0-1.0); Total Protein 6.4 G/DL (6.4-8.2)
[2021-06-01] MEDS: LEVOTHYROXINE 88 MCG TABLET PO SCH (06:27)
[2021-06-01] MEDS: DOCUSATE SODIUM 100 MG CAPSULE PO SCH (08:16)
[2021-06-01] MEDS: ASPIRIN EC 325 MG TABLET PO SCH (08:16)
[2021-06-01] MEDS: MAGNESIUM OXIDE 400 MG TABLET PO SCH ×2 (08:16→20:51)
[2021-06-01] MEDS: CHLORHEXIDINE 0.12% ORAL RINSE 60 ML BOTTLE SWISH/SPIT SCH ×2 (08:17→20:52)
[2021-06-01] MEDS: FERROUS SULFATE 325 MG TABLET PO SCH (08:17)
[2021-06-01] MEDS: METOPROLOL TARTRATE 25 MG TABLET PO SCH ×2 (08:17→20:51)
[2021-06-01] MEDS: ASCORBIC ACID 500 MG TABLET PO SCH ×2 (08:17→20:51)
[2021-06-01] MEDS: ESTRADIOL 1 MG TABLET PO SCH (08:17)
[2021-06-01] MEDS: SODIUM CHLOR 0.45% KCL 20 MEQ 20 MEQ/1,000 ML BAG IV SCH (08:34)
[2021-06-01] MEDS ORDERED: EMPAGLIFLOZIN 25 MG PO SCH (09:00)
[2021-06-01] MEDS ORDERED: SELENIUM 200 MCG TABLET PO SCH (09:00)
[2021-06-01] MEDS: VANCOMYCIN INJ 1,000 MG in SODIUM CHLORIDE 0.9% 250 ML IV SCH (10:59)
[2021-06-01] MEDS ORDERED: DEXTROSE 50% 25 GM/50 ML VIAL IV PRN (11:10)
[2021-06-01] MEDS ORDERED: GLUCAGON 1 MG VIAL IM PRN (11:10)
[2021-06-01] MEDS: INSULIN REGULAR 100 UNIT/ML SUBCUT SCH ×3 (11:22→20:49)
[2021-06-01] MEDS: CHOLECALCIFEROL 5,000 UNIT TABLET PO SCH (20:51)
[2021-06-01] MEDS: ROSUVASTATIN 20 MG TABLET PO SCH (20:51)
[2021-06-01] MEDS: PANTOPRAZOLE 40 MG TABLET PO SCH (20:52)
[2021-06-02] MEDS: ONDANSETRON 4 MG/2 ML VIAL IV PRN ×3 (05:16→19:12)
[2021-06-02] MEDS: oxyCODONE/ACETAMINOPHEN 5-325 MG TABLET PO PRN ×3 (05:17→19:11)
[2021-06-02 05:45] LABS: Basophils % 0.2 % (0.0-0.8); Eosinophils # 0.1 10*3/uL (0.0-0.87); Eosinophils % 0.3 % (0.00-10.9); Hematocrit 34.7 VOL% (35.7-47.0); Immature Granulocytes % 0.5 %; Immature Granulocytes Absolute 0.09 #; Lymphocytes # 6.6 10*3/uL (1.4-4.0); Lymphocytes % 35.7 % (21.3-54.2); Mean Corpuscular HGB Conc 31.7 GM/DL (32-36); Mean Corpuscular Volume 91.3 FL (87-102); Mean Platelet Volume 9.7 FL (9.6-12.0); Monocytes % 6.7 % (1.7-12.7); Neutrophils % 56.6 % (38.7-73.9); Platelet Count 325 T/CUMM (130-400); Red Cell Distribution Width 13.2 % (9.3-17.3); White Blood Count 18.6 T/CUMM (4-12)
[2021-06-02 06:11] LABS: Albumin 3.7 G/DL (3.4-5.0); Bilirubin,Direct 0.13 MG/DL (0.0-0.20); Bilirubin,Total 0.8 MG/DL (0.20-1.00); Osmolality,Calculated 289.3 MOS/KG (273-304); Potassium 3.6 MMOL/L (3.5-5.1); Total Protein 6.8 G/DL (6.4-8.2)
[2021-06-02 06:14] LABS: Alanine Aminotransferase 15 U/L (13-56); Albumin 3.6 G/DL (3.4-5.0); Alkaline Phosphatase 65 U/L (45-117); Aspartate Amino Transferase 10 U/L (0-37); Bilirubin,Indirect 0.5 MG/DL (0.0-1.0); Total Protein 6.4 G/DL (6.4-8.2)
[2021-06-02] MEDS: LEVOTHYROXINE 88 MCG TABLET PO SCH (06:57)
[2021-06-02] MEDS: MAGNESIUM OXIDE 400 MG TABLET PO SCH ×2 (09:38→22:07)
[2021-06-02] MEDS: DOCUSATE SODIUM 100 MG CAPSULE PO SCH (09:38)
[2021-06-02] MEDS: ESTRADIOL 1 MG TABLET PO SCH (09:38)
[2021-06-02] MEDS: ASPIRIN EC 325 MG TABLET PO SCH (09:38)
[2021-06-02] MEDS: METOPROLOL TARTRATE 25 MG TABLET PO SCH ×2 (09:38→22:34)
[2021-06-02] MEDS: ASCORBIC ACID 500 MG TABLET PO SCH ×2 (09:38→22:07)
[2021-06-02] MEDS: FERROUS SULFATE 325 MG TABLET PO SCH (09:39)
[2021-06-02] MEDS: INSULIN REGULAR 100 UNIT/ML SUBCUT SCH ×4 (09:39→22:09)
[2021-06-02] MEDS: POLYETHYLENE GLYCOL POWDER 17 GM PACK PO SCH (09:39)
[2021-06-02] MEDS: metFORMIN 500 MG TABLET PO SCH ×2 (09:39→16:43)
[2021-06-02] MEDS: CHLORHEXIDINE 0.12% ORAL RINSE 60 ML BOTTLE SWISH/SPIT SCH ×2 (09:40→22:09)
[2021-06-02] MEDS: SELENIUM 200 MCG PO SCH (09:40)
[2021-06-02] MEDS: CHOLECALCIFEROL 5,000 UNIT TABLET PO SCH (22:07)
[2021-06-02] MEDS: ROSUVASTATIN 20 MG TABLET PO SCH (22:08)
[2021-06-02] MEDS: ZALEPLON 5 MG CAPSULE PO PRN (22:08)
[2021-06-02] MEDS: PANTOPRAZOLE 40 MG TABLET PO SCH (22:08)
[2021-06-03 05:12] LABS: Basophils % 0.2 % (0.0-0.8); Eosinophils # 0.1 10*3/uL (0.0-0.87); Eosinophils % 0.4 % (0.00-10.9); Hematocrit 31.1 VOL% (35.7-47.0); Hemoglobin 10.5 GM/DL (12.0-16.0); Immature Granulocytes % 0.7 %; Lymphocytes # 3.1 10*3/uL (1.4-4.0); Lymphocytes % 22.8 % (21.3-54.2); Mean Corpuscular HGB Conc 33.8 GM/DL (32-36); Mean Corpuscular Volume 89.4 FL (87-102); Mean Platelet Volume 9.9 FL (9.6-12.0); Neutrophils % 68.9 % (38.7-73.9); Platelet Count 293 T/CUMM (130-400); Red Blood Count 3.48 MC/CUMM (3.8-5.5); White Blood Count 13.6 T/CUMM (4-12)
[2021-06-03 05:37] LABS: Calcium 8.5 MG/DL (8.5-10.1); Osmolality,Calculated 286.3 MOS/KG (273-304); Potassium 3.6 MMOL/L (3.5-5.1)
[2021-06-03] MEDS: LEVOTHYROXINE 88 MCG TABLET PO SCH (06:58)
[2021-06-03] MEDS: MAGNESIUM SULF RIDER 2 GM/50 ML PREMIX IV PRN (08:08)
[2021-06-03] MEDS: INSULIN REGULAR 100 UNIT/ML SUBCUT SCH ×2 (09:07→12:07)
[2021-06-03] MEDS: INSULIN GLARGINE 100 UNIT/ML SUBCUT SCH (09:11)
[2021-06-03] MEDS: metFORMIN 500 MG TABLET PO SCH ×2 (09:13→16:55)
[2021-06-03] MEDS: ASPIRIN EC 325 MG TABLET PO SCH (09:13)
[2021-06-03] MEDS: DOCUSATE SODIUM 100 MG CAPSULE PO SCH (09:14)
[2021-06-03] MEDS: ESTRADIOL 1 MG TABLET PO SCH (09:14)
[2021-06-03] MEDS: FERROUS SULFATE 325 MG TABLET PO SCH (09:17)
[2021-06-03] MEDS: METOPROLOL TARTRATE 25 MG TABLET PO SCH ×2 (09:18→21:01)
[2021-06-03] MEDS: MAGNESIUM OXIDE 400 MG TABLET PO SCH ×2 (09:18→20:41)
[2021-06-03] MEDS: POLYETHYLENE GLYCOL POWDER 17 GM PACK PO SCH (09:19)
[2021-06-03] MEDS: ASCORBIC ACID 500 MG TABLET PO SCH ×2 (09:22→20:41)
[2021-06-03] MEDS: POTASSIUM CHLORIDE 20 MEQ TABLET PO PRN ×2 (09:22→10:38)
[2021-06-03] MEDS: SELENIUM 200 MCG PO SCH (09:24)
[2021-06-03] MEDS: CHLORHEXIDINE 0.12% ORAL RINSE 60 ML BOTTLE SWISH/SPIT SCH ×2 (09:34→20:41)
[2021-06-03] MEDS: ACETAMINOPHEN 325 MG TABLET PO PRN (13:56)
[2021-06-03] MEDS: CHOLECALCIFEROL 5,000 UNIT TABLET PO SCH (20:41)
[2021-06-03] MEDS: PANTOPRAZOLE 40 MG TABLET PO SCH (20:41)
[2021-06-03] MEDS: ROSUVASTATIN 20 MG TABLET PO SCH (20:41)
[2021-06-04 05:11] LABS: Basophils % 0.2 % (0.0-0.8); Eosinophils # 0.2 10*3/uL (0.0-0.87); Eosinophils % 1.6 % (0.00-10.9); Hematocrit 33.4 VOL% (35.7-47.0); Hemoglobin 10.7 GM/DL (12.0-16.0); Immature Granulocytes % 0.4 %; Immature Granulocytes Absolute 0.05 #; Lymphocytes % 48.3 % (21.3-54.2); Mean Corpuscular Volume 91.5 FL (87-102); Mean Platelet Volume 9.6 FL (9.6-12.0); Monocytes % 7.4 % (1.7-12.7); Neutrophils % 42.1 % (38.7-73.9); Platelet Count 324 T/CUMM (130-400); Red Blood Count 3.65 MC/CUMM (3.8-5.5); White Blood Count 12.3 T/CUMM (4-12)
[2021-06-04 05:37] LABS: Alanine Aminotransferase 13 U/L (13-56); Albumin 3.1 G/DL (3.4-5.0); Alkaline Phosphatase 69 U/L (45-117); Aspartate Amino Transferase 7 U/L (0-37); Bilirubin,Indirect 0.3 MG/DL (0.0-1.0); Blood Urea Nitrogen 10 MG/DL (7-18); Calcium 8.6 MG/DL (8.5-10.1); Carbon Dioxide 29 MMOL/L (21-32); Estimated Glom Filtration Rate 111 ML/MIN; Glucose 232 MG/DL (74-106); Osmolality,Calculated 288.1 MOS/KG (273-304); Potassium 3.9 MMOL/L (3.5-5.1); Sodium 142 MMOL/L (136-145); Total Protein 6.4 G/DL (6.4-8.2)
[2021-06-04] MEDS: LEVOTHYROXINE 88 MCG TABLET PO SCH (06:06)
[2021-06-04] MEDS: ASCORBIC ACID 500 MG TABLET PO SCH ×2 (09:23→20:50)
[2021-06-04] MEDS: ESTRADIOL 1 MG TABLET PO SCH (09:24)
[2021-06-04] MEDS: metFORMIN 500 MG TABLET PO SCH ×2 (09:24→17:08)
[2021-06-04] MEDS: ASPIRIN EC 325 MG TABLET PO SCH (09:24)
[2021-06-04] MEDS: MAGNESIUM OXIDE 400 MG TABLET PO SCH ×3 (09:24→20:49)
[2021-06-04] MEDS: FERROUS SULFATE 325 MG TABLET PO SCH (09:25)
[2021-06-04] MEDS: INSULIN GLARGINE 100 UNIT/ML SUBCUT SCH (09:25)
[2021-06-04] MEDS: CHLORHEXIDINE 0.12% ORAL RINSE 60 ML BOTTLE SWISH/SPIT SCH ×2 (11:41→20:52)
[2021-06-04] MEDS: POLYETHYLENE GLYCOL POWDER 17 GM PACK PO SCH (11:41)
[2021-06-04] MEDS: METOPROLOL TARTRATE 25 MG TABLET PO SCH ×3 (11:41→21:12)
[2021-06-04] MEDS: DOCUSATE SODIUM 100 MG CAPSULE PO SCH (11:42)
[2021-06-04] MEDS: SELENIUM 200 MCG PO SCH (11:42)
[2021-06-04] MEDS: ACETAMINOPHEN 325 MG TABLET PO PRN ×2 (12:13→17:08)
[2021-06-04] MEDS: INSULIN REGULAR 100 UNIT/ML SUBCUT SCH ×2 (17:09→20:51)
[2021-06-04] MEDS: ROSUVASTATIN 20 MG TABLET PO SCH (20:50)
[2021-06-04] MEDS: PANTOPRAZOLE 40 MG TABLET PO SCH (20:50)
[2021-06-04] MEDS: CHOLECALCIFEROL 5,000 UNIT TABLET PO SCH (20:50)
[2021-06-04] MEDS ORDERED: INSULIN REGULAR 100 UNIT/ML SUBCUT SCH (21:00)
[2021-06-05 04:30] LABS: Basophils % 0.4 % (0.0-0.8); Eosinophils # 0.3 10*3/uL (0.0-0.87); Eosinophils % 2.2 % (0.00-10.9); Hematocrit 31.4 VOL% (35.7-47.0); Hemoglobin 10.2 GM/DL (12.0-16.0); Immature Granulocytes % 0.6 %; Immature Granulocytes Absolute 0.07 #; Lymphocytes # 4.7 10*3/uL (1.4-4.0); Lymphocytes % 41.1 % (21.3-54.2); Mean Corpuscular HGB Conc 32.5 GM/DL (32-36); Mean Corpuscular Volume 89.5 FL (87-102); Mean Platelet Volume 9.3 FL (9.6-12.0); Monocytes % 8.5 % (1.7-12.7); Neutrophils % 47.2 % (38.7-73.9); Platelet Count 346 T/CUMM (130-400); Red Blood Count 3.51 MC/CUMM (3.8-5.5); White Blood Count 11.4 T/CUMM (4-12)
[2021-06-05 04:51] LABS: Alanine Aminotransferase 10 U/L (13-56); Alkaline Phosphatase 63 U/L (45-117); Aspartate Amino Transferase 7 U/L (0-37); Bilirubin,Indirect 0.5 MG/DL (0.0-1.0); Blood Urea Nitrogen 7 MG/DL (7-18); Calcium 8.5 MG/DL (8.5-10.1); Carbon Dioxide 30 MMOL/L (21-32); Estimated Glom Filtration Rate 118 ML/MIN; Glucose 150 MG/DL (74-106); Osmolality,Calculated 286.8 MOS/KG (273-304); Potassium 3.4 MMOL/L (3.5-5.1); Sodium 144 MMOL/L (136-145)
[2021-06-05] MEDS: MAGNESIUM SULF RIDER 2 GM/50 ML PREMIX IV PRN (05:02)
[2021-06-05] MEDS: LEVOTHYROXINE 88 MCG TABLET PO SCH (06:05)
[2021-06-05] MEDS: ACETAMINOPHEN 325 MG TABLET PO PRN ×2 (06:34→17:15)
[2021-06-05] MEDS: POTASSIUM CHLORIDE 20 MEQ TABLET PO PRN ×3 (06:43→12:18)
[2021-06-05] MEDS: INSULIN REGULAR 100 UNIT/ML SUBCUT SCH ×4 (09:47→22:19)
[2021-06-05] MEDS: INSULIN GLARGINE 100 UNIT/ML SUBCUT SCH (09:47)
[2021-06-05] MEDS: POLYETHYLENE GLYCOL POWDER 17 GM PACK PO SCH (09:47)
[2021-06-05] MEDS: METOPROLOL TARTRATE 25 MG TABLET PO SCH ×2 (09:48→22:19)
[2021-06-05] MEDS: metFORMIN 500 MG TABLET PO SCH ×2 (09:48→17:15)
[2021-06-05] MEDS: MAGNESIUM OXIDE 400 MG TABLET PO SCH ×3 (09:49→22:18)
[2021-06-05] MEDS: ASCORBIC ACID 500 MG TABLET PO SCH ×2 (09:49→22:17)
[2021-06-05] MEDS: ASPIRIN EC 325 MG TABLET PO SCH (09:49)
[2021-06-05] MEDS: FERROUS SULFATE 325 MG TABLET PO SCH (09:50)
[2021-06-05] MEDS: DOCUSATE SODIUM 100 MG CAPSULE PO SCH (09:50)
[2021-06-05] MEDS: ESTRADIOL 1 MG TABLET PO SCH (09:50)
[2021-06-05] MEDS: CHLORHEXIDINE 0.12% ORAL RINSE 60 ML BOTTLE SWISH/SPIT SCH ×2 (09:51→22:19)
[2021-06-05] MEDS: SELENIUM 200 MCG PO SCH (09:51)
[2021-06-05] MEDS ORDERED: AMIODARONE 200 MG TABLET PO ONE (12:50)
[2021-06-05] MEDS: CHOLECALCIFEROL 5,000 UNIT TABLET PO SCH (22:18)
[2021-06-05] MEDS: AMIODARONE 200 MG TABLET PO SCH (22:18)
[2021-06-05] MEDS: ROSUVASTATIN 20 MG TABLET PO SCH (22:18)
[2021-06-05] MEDS: PANTOPRAZOLE 40 MG TABLET PO SCH (22:18)
[2021-06-06 05:11] LABS: Basophils % 0.4 % (0.0-0.8); Eosinophils # 0.3 10*3/uL (0.0-0.87); Eosinophils % 2.5 % (0.00-10.9); Hematocrit 31.3 VOL% (35.7-47.0); Hemoglobin 10.1 GM/DL (12.0-16.0); Immature Granulocytes % 0.8 %; Immature Granulocytes Absolute 0.08 #; Lymphocytes # 4.8 10*3/uL (1.4-4.0); Lymphocytes % 47.5 % (21.3-54.2); Mean Corpuscular HGB Conc 32.3 GM/DL (32-36); Mean Platelet Volume 9.1 FL (9.6-12.0); Monocytes % 7.8 % (1.7-12.7); Platelet Count 343 T/CUMM (130-400); Red Blood Count 3.44 MC/CUMM (3.8-5.5); Red Cell Distribution Width 13.2 % (9.3-17.3); White Blood Count 10.2 T/CUMM (4-12)
[2021-06-06 05:31] LABS: Calcium 8.8 MG/DL (8.5-10.1); Potassium 3.5 MMOL/L (3.5-5.1)
[2021-06-06] MEDS: LEVOTHYROXINE 88 MCG TABLET PO SCH (06:16)
[2021-06-06] MEDS ORDERED: MAGNESIUM SULF RIDER 2 GM/50 ML PREMIX IV ONE (07:49)
[2021-06-06] MEDS ORDERED: POTASSIUM CHLORIDE 20 MEQ TABLET PO ONE (07:49)
[2021-06-06] MEDS ORDERED: DIGOXIN 0.5 MG/2 ML AMP IV ONE (07:50)
[2021-06-06] MEDS ORDERED: LEVALBUTEROL 0.31 MG/3 ML NEB RESP TX ONE (08:01)
[2021-06-06] MEDS: SODIUM CHLORIDE 0.45% 1,000 ML IV SCH ×2 (10:28→11:25)
[2021-06-06] MEDS: INSULIN REGULAR 100 UNIT/ML SUBCUT SCH ×4 (10:30→21:39)
[2021-06-06] MEDS: INSULIN GLARGINE 100 UNIT/ML SUBCUT SCH (10:31)
[2021-06-06] MEDS: metFORMIN 500 MG TABLET PO SCH ×2 (10:31→16:37)
[2021-06-06] MEDS: FERROUS SULFATE 325 MG TABLET PO SCH (10:31)
[2021-06-06] MEDS: AMIODARONE 200 MG TABLET PO SCH ×2 (10:32→21:30)
[2021-06-06] MEDS: ESTRADIOL 1 MG TABLET PO SCH (10:32)
[2021-06-06] MEDS: POTASSIUM CHLORIDE 20 MEQ TABLET PO PRN (10:32)
[2021-06-06] MEDS: MAGNESIUM OXIDE 400 MG TABLET PO SCH ×3 (10:32→21:30)
[2021-06-06] MEDS: ASCORBIC ACID 500 MG TABLET PO SCH ×2 (10:32→21:30)
[2021-06-06] MEDS: ASPIRIN EC 325 MG TABLET PO SCH (10:33)
[2021-06-06] MEDS: CLORAZEPATE 3.75 MG TABLET PO PRN (10:33)
[2021-06-06] MEDS: POLYETHYLENE GLYCOL POWDER 17 GM PACK PO SCH (10:34)
[2021-06-06] MEDS: DOCUSATE SODIUM 100 MG CAPSULE PO SCH (10:34)
[2021-06-06] MEDS: SELENIUM 200 MCG PO SCH (10:34)
[2021-06-06] MEDS: CHLORHEXIDINE 0.12% ORAL RINSE 60 ML BOTTLE SWISH/SPIT SCH ×2 (10:35→22:18)
[2021-06-06] MEDS: ACETAMINOPHEN 325 MG TABLET PO PRN ×2 (15:02→21:30)
[2021-06-06] MEDS: CHOLECALCIFEROL 5,000 UNIT TABLET PO SCH (21:30)
[2021-06-06] MEDS: ROSUVASTATIN 20 MG TABLET PO SCH (21:30)
[2021-06-06] MEDS: PANTOPRAZOLE 40 MG TABLET PO SCH (21:30)
[2021-06-07 05:21] LABS: Calcium 8.8 MG/DL (8.5-10.1); Osmolality,Calculated 284.8 MOS/KG (273-304)
[2021-06-07 05:22] LABS: Basophils % 0.4 % (0.0-0.8); Eosinophils # 0.3 10*3/uL (0.0-0.87); Eosinophils % 2.8 % (0.00-10.9); Hematocrit 30.9 VOL% (35.7-47.0); Immature Granulocytes % 0.9 %; Immature Granulocytes Absolute 0.09 #; Lymphocytes # 4.4 10*3/uL (1.4-4.0); Lymphocytes % 44.1 % (21.3-54.2); Mean Corpuscular HGB Conc 32.4 GM/DL (32-36); Mean Corpuscular Volume 90.4 FL (87-102); Mean Platelet Volume 9.3 FL (9.6-12.0); Monocytes % 8.3 % (1.7-12.7); Neutrophils % 43.5 % (38.7-73.9); Platelet Count 374 T/CUMM (130-400); Red Blood Count 3.42 MC/CUMM (3.8-5.5); Red Cell Distribution Width 13.5 % (9.3-17.3)
[2021-06-07 05:23] LABS: Alanine Aminotransferase < 6 U/L (13-56); Albumin 2.8 G/DL (3.4-5.0); Alkaline Phosphatase 63 U/L (45-117); Aspartate Amino Transferase 6 U/L (0-37); Blood Urea Nitrogen 5 MG/DL (7-18); Calcium 8.9 MG/DL (8.5-10.1); Carbon Dioxide 30 MMOL/L (21-32); Estimated Glom Filtration Rate 118 ML/MIN; Glucose 139 MG/DL (74-106); Osmolality,Calculated 279.3 MOS/KG (273-304); Potassium 3.9 MMOL/L (3.5-5.1); Sodium 141 MMOL/L (136-145); Total Protein 5.7 G/DL (6.4-8.2)
[2021-06-07] MEDS: ACETAMINOPHEN 325 MG TABLET PO PRN ×3 (05:49→20:59)
[2021-06-07] MEDS: ASCORBIC ACID 500 MG TABLET PO SCH ×2 (10:02→20:16)
[2021-06-07] MEDS: MAGNESIUM OXIDE 400 MG TABLET PO SCH ×3 (10:02→20:16)
[2021-06-07] MEDS: ESTRADIOL 1 MG TABLET PO SCH (10:03)
[2021-06-07] MEDS: ASPIRIN EC 325 MG TABLET PO SCH (10:03)
[2021-06-07] MEDS: LEVOTHYROXINE 88 MCG TABLET PO SCH (10:03)
[2021-06-07] MEDS: metFORMIN 500 MG TABLET PO SCH ×2 (10:03→17:51)
[2021-06-07] MEDS: FERROUS SULFATE 325 MG TABLET PO SCH (10:03)
[2021-06-07] MEDS: AMIODARONE 200 MG TABLET PO SCH ×2 (10:03→20:16)
[2021-06-07] MEDS: INSULIN REGULAR 100 UNIT/ML SUBCUT SCH ×4 (10:04→20:17)
[2021-06-07] MEDS: INSULIN GLARGINE 100 UNIT/ML SUBCUT SCH (10:04)
[2021-06-07] MEDS: MAGNESIUM SULF RIDER 2 GM/50 ML PREMIX IV PRN (10:14)
[2021-06-07] MEDS ORDERED: DIGOXIN 0.5 MG/2 ML AMP IV ONE (10:42)
[2021-06-07] MEDS: CHLORHEXIDINE 0.12% ORAL RINSE 60 ML BOTTLE SWISH/SPIT SCH ×2 (12:34→20:26)
[2021-06-07] MEDS: SELENIUM 200 MCG PO SCH (12:34)
[2021-06-07] MEDS: DOCUSATE SODIUM 100 MG CAPSULE PO SCH (12:34)
[2021-06-07] MEDS: POLYETHYLENE GLYCOL POWDER 17 GM PACK PO SCH (12:34)
[2021-06-07] MEDS: CLORAZEPATE 3.75 MG TABLET PO PRN (15:32)
[2021-06-07] MEDS: CHOLECALCIFEROL 5,000 UNIT TABLET PO SCH (20:16)
[2021-06-07] MEDS: PANTOPRAZOLE 40 MG TABLET PO SCH (20:16)
[2021-06-07] MEDS: ROSUVASTATIN 20 MG TABLET PO SCH (20:16)
[2021-06-07] MEDS: ZALEPLON 5 MG CAPSULE PO PRN (21:02)
[2021-06-08 05:33] LABS: Basophils # 0.1 10*3/uL (0.0-0.2); Basophils % 0.4 % (0.0-0.8); Eosinophils # 0.2 10*3/uL (0.0-0.87); Hemoglobin 10.1 GM/DL (12.0-16.0); Immature Granulocytes % 0.6 %; Immature Granulocytes Absolute 0.07 #; Lymphocytes # 3.9 10*3/uL (1.4-4.0); Lymphocytes % 33.4 % (21.3-54.2); Mean Corpuscular HGB Conc 32.6 GM/DL (32-36); Mean Corpuscular Volume 90.9 FL (87-102); Mean Platelet Volume 9.3 FL (9.6-12.0); Monocytes % 8.5 % (1.7-12.7); Neutrophils % 55.1 % (38.7-73.9); Platelet Count 414 T/CUMM (130-400); Red Blood Count 3.41 MC/CUMM (3.8-5.5); Red Cell Distribution Width 13.3 % (9.3-17.3); White Blood Count 11.6 T/CUMM (4-12)
[2021-06-08 05:56] LABS: Calcium 8.8 MG/DL (8.5-10.1); Osmolality,Calculated 285.8 MOS/KG (273-304); Potassium 3.8 MMOL/L (3.5-5.1)
[2021-06-08] MEDS: LEVOTHYROXINE 88 MCG TABLET PO SCH (06:10)
[2021-06-08] MEDS: INSULIN GLARGINE 100 UNIT/ML SUBCUT SCH (08:53)
[2021-06-08] MEDS: FERROUS SULFATE 325 MG TABLET PO SCH ×2 (08:54→09:38)
[2021-06-08] MEDS: INSULIN REGULAR 100 UNIT/ML SUBCUT SCH (08:54)
[2021-06-08] MEDS: ASCORBIC ACID 500 MG TABLET PO SCH (08:54)
[2021-06-08] MEDS: MAGNESIUM OXIDE 400 MG TABLET PO SCH (08:54)
[2021-06-08] MEDS: AMIODARONE 200 MG TABLET PO SCH (08:54)
[2021-06-08] MEDS: metFORMIN 500 MG TABLET PO SCH (08:54)
[2021-06-08] MEDS: ESTRADIOL 1 MG TABLET PO SCH (08:55)
[2021-06-08] MEDS: ASPIRIN EC 325 MG TABLET PO SCH (08:55)
[2021-06-08] MEDS: CHLORHEXIDINE 0.12% ORAL RINSE 60 ML BOTTLE SWISH/SPIT SCH (09:37)
[2021-06-08] MEDS: DOCUSATE SODIUM 100 MG CAPSULE PO SCH (09:37)
[2021-06-08] MEDS: POLYETHYLENE GLYCOL POWDER 17 GM PACK PO SCH (09:37)
[2021-06-08] MEDS: SELENIUM 200 MCG PO SCH (09:37)
[2021-06-08 09:48] VITALS: BP 105/69
== END 2021-06-08 11:44 | disposition home health service (06) | DRG 236 ==
LOC: N.4E 09:06 → N.CVR 11:00 → N.4E 11:03 → N.CVR 05-30 10:53 → N.TELES 05-31 09:30